=== PATIENT | female | born 1995 | race African-American/Black ===

== ENCOUNTER 2018-05-05 03:38 | Emergency (ER) | payer MEDICAID ==
[~2018-05-05] VITALS: Ht 165.1 cm; Wt 86.0 kg
[2018-05-05 08:01] VITALS: BP 125/77
== END 2018-05-05 08:04 | disposition home or self-care (01) ==
LOC: ER 03:38
DX: R07.89 Other chest pain (principal); J45.909 Unspecified asthma, uncomplicated; Z91.040 Latex allergy status
CPT/HCPCS: 71046; 93005; 99283